=== PATIENT | male | born 1960 | race Caucasian/White ===

== ENCOUNTER 2019-10-22 15:05 | Emergency (ER) | payer OTHER ==
[2019-10-22 15:18] VITALS: TEMP 97.6; BMI 18.4
--- NOTE | 2019-10-22 15:25 | PDOC ---
History of Present Illness - General Chief Complaint: Shortness of Breath Stated Complaint: SHORTNESS OF BRETH Time Seen by Provider: 10/22/19 15:08 History Source: Patient Exam Limitations: No Limitations - History of Present Illness Initial Comments: 10/22/19 17:16 59yM w PMhx HIV (on antivirals) and substance drug abuse (currently meth) presenting w SOB. 3pm, experienced sudden diaphoresis, blurry vision, SOB when taxi stopped suddenly on the way to visit his mother. Currently has SOB, lightheadedness worse w standing, not associated w exertion. Denies recent alcohol/smoking/recent drug use. Antiviral med compliant, last viral levels undetectable. Was seen 2mo ago for SOB admitted for PNA and obstructed bronchiole from pea. Denies fever, nausea/vomiting, cough, chest pain, urinary symptoms. Dr Lyndon raya Past History - Past Medical History Allergies/Adverse Reactions: Allergies Allergy/AdvReac Type Severity Reaction Status Date / Time No Known Allergies Allergy Verified 10/22/19 15:23 Home Medications: Ambulatory Orders Acyclovir [Zovirax -] 400 mg PO DAILY 10/22/19 Albuterol Sulfate Inhaler - [Ventolin Hfa Inhaler -] 1 - 2 inh PO QID PRN Amlodipine Besylate [Norvasc -] 5 mg PO DAILY 10/22/19 Aspirin [Aspirin EC] 81 mg PO DAILY 10/22/19 Cholecalciferol (Vitamin D3) [Vitamin D3] 50 mcg PO DAILY 10/22/19 Cyproheptadine [Periactin -] 4 mg PO Q12H 10/22/19 Dronabinol 10/22/19 Enalapril Maleate [Vasotec] 10 mg PO DAILY 10/22/19 Finasteride 5 mg PO DAILY 10/22/19 Fluticasone Prop 0.05% Nasal [Flonase -] 1 - 2 spray NS BID 10/22/19 Mupirocin Ointment [Bactroban] 1 applic TP BID 10/22/19 Mv-Mins/Folic Acid/Guarana/Caf [One Daily Tablet] 1 each PO DAILY 10/22/19 Ranitidine HCl 10/22/19 Asthma: Yes COPD: No Disorders: Yes HTN: Yes Other medical history: HIV,PNA - Psycho Social/Smoking Cessation Hx Smoking History: Current every day smoker Number of Cigarettes Smoked Daily: 1 Information on smoking cessation initiated: Yes Hx Alcohol Use: No Drug/Substance Use Hx: Yes Review of Systems - Review of Systems Constitutional: No: Chills, Fever HEENTM: Yes: Blurred Vision. No: Eye Pain, Nose Pain, Hearing Loss, Mouth Pain Respiratory: Yes: Shortness of Breath. No: Cough, Wheezing Cardiac (ROS): Yes: Lightheadedness. No: Chest Pain ABD/GI: No: Abdominal Distended, Constipated, Diarrhea, Nausea, Vomiting : No: Burning, Dysuria, Flank Pain Musculoskeletal: No: Back Pain, Joint Pain Integumentary: No: Bruising, Erythema Neurological: No: Headache, Seizure, Tingling Psychiatric: No: Anxiety, Depression Endocrine: No: Excessive Sweating, Flushing, Intolerance to Cold, Intolerance to Heat Hematologic/Lymphatic: No: Anemia, Blood Clots *Physical Exam - Vital Signs Last Vital Signs Temp Pulse Resp BP Pulse Ox 97.6 F 104 H 19 156/71 100 10/22/19 15:06 10/22/19 15:06 10/22/19 15:06 10/22/19 15:06 10/22/19 15:06 - Physical Exam General Appearance: Yes: Nourished, Appropriately Dressed. No: Apparent Distress HEENT: positive: EOMI, ROHINI, Normal Voice, Hearing Grossly Normal. negative: Scleral Icterus (R), Scleral Icterus (L), Nasal Congestion, Rhinorrhea Respiratory/Chest: positive: Lungs Clear, Normal Breath Sounds. negative: Chest Tender, Respiratory Distress, Crackles, Rales, Rhonchi, Stridor, Wheezing Cardiovascular: positive: Regular Rhythm, S1, S2, Tachycardia. negative: Edema , Murmur Extremity: positive: Delayed Capillary Refill Integumentary: positive: Normal Color, Dry Neurologic: positive: director of public works II-XII NML intact, Fully Oriented, Alert, Normal Mood/ Affect, Normal Response, Motor Strength 5/5, Respond to painful stimul, Responsive. negative: Numbness, Sensory Deficit, Confused, Disoriented ED Treatment Course - LABORATORY CBC & Chemistry Diagram: 10/22/19 15:55 10/22/19 15:55 Medical Decision Making - Medical Decision Making 10/22/19 17:20 CXR shows enlarged lung servin, chronic infiltrates EKG shows TWI V1, HR 80, QTc 426 Cr 1.6 --- 59yM w PMHx HIV (on antivirals) and substance drug abuse (currently meth) presenting w SOB, presyncope SOB d/t anxiety. Likely had vasovagal syncope (vision change, diaphoresis). Also has BIBIANA (Cr 1.6) without UTI. Low concern for ACS (neg trop, normal EKG) vs anemia (normal Hgb). Contacted Dr Lyndon raya, waiting for call back DC home w PCP f/u Discharge - Discharge Information Problems reviewed: Yes Clinical Impression/Diagnosis: Anxiety, SOB (shortness of breath), Pre-syncope, BIBIANA (acute kidney injury) Condition: Good Disposition: HOME - Admission No - Follow up/Referral - Patient Discharge Instructions Patient Printed Discharge Instructions: DI for Syncope in Adults (Fainting), DI for Shortness of Breath Additional Instructions: You were seen for shortness of breath. Your workup did not show anything concerning. You were given fluids Please see your primary care doctor regarding this visit. Drink lots of water Come back to the ED if you have chest pain, trouble breathing, or lose consciousness - Post Discharge Activity
[2019-10-22 16:16] LABS: BASO % 0.8 % (0-2.0); EOS % 1.8 % (0-4.5); HEMATOCRIT 46.2 % (35.4-49); HEMOGLOBIN 15.4 GM/dl (11.7-16.9); LYMPH % 19.8 % (8-40); MCH 32.2 pg (25.7-33.7); MCHC 33.3 g/dl (32.0-35.9); MEAN CELL VOLUME 96.7 fl (80-96); MEAN PLT VOLUME 8.4 fl (7.5-11.1); MONO % 5.4 % (3.8-10.2); NEUT % 72.2 % (42.8-82.8); PLATELET COUNT 228 K/MM3 (134-434); RBC 4.78 M/mm3 (4.00-5.60); RDW 13.1 % (11.9-15.9); WHITE BLOOD COUNT 5.9 K/mm3 (4.0-10.8)
[2019-10-22 16:23] LABS: ALBUMIN 4.1 g/dl (3.4-5.0); BILIRUBIN,TOTAL 0.5 mg/dl (0.2-1); CALCIUM 9.6 mg/dl (8.5-10); CREATININE 1.6 mg/dl (0.55-1.3); POTASSIUM 4.6 mmol/L (3.5-5.1); TOT PROT 7.1 g/dl (6.4-8.2)
[2019-10-22] MEDS ORDERED: SODIUM CHLORIDE 0.9% 500 ML INFUS.BAG IV ONE ×2 (16:24→17:33)
--- NOTE | 2019-10-22 16:30 | PDOC ---
Attending Attestation - Resident Resident Name: Nima Arellano - ED Attending Attestation I have performed the following: I have examined & evaluated the patient, The case was reviewed & discussed with the resident, I agree w/resident's findings & plan, Exceptions are as noted - HPI HPI: 10/22/19 16:25 59 yo h/o HIV on antivirals, current viral load undetectabel. with recent admission to [facility] for pneumonia, and bronchoscopy here with episode of feeling lighteaded. pt states he was [place] taxi on way to see his mother, as his father recently is . came to sudden stop, he smoked cigarette and suddenly became dizzy, lightehaded as if he was about to faint. states his lighteadedness gets worse wtih standing or going from lying to sitting up. no f/ c no cough. has had chronic sob for last few months. he follows with pulmonary at [facility] in [place]. states he recenlty had workup wtih ct contrast negative for PE also has had recent cardiac workup of stress that he was unabel to finish due to dizziness, but was reportedly unremarkable. no cp no leg swelling. does use meth regularily and h/o heroin abuse. has been eating drinking ok. no other complaints. - Physicial Exam PE: 10/22/19 16:30 awake alert pt is thin emaciated. lungs are with distant bs, no wheezes no crackes. heart rrr no mrg abd soft nt nd ext wwp. no edema. nocalf tenderness. awake alert oriented. - Medical Decision Making 10/22/19 16:30 59 yo male h/o HIV viral uload undetectable and recent pneumonia here with lighteaded epsiode and near syncope, chronic sob. plan r/o infection, anemia, cardiac event. ekg labs trop ivf hydration. if all unremarkable. pt likley to be dc home. recomemnd refrain from drug use and smoking and fu wtih pulmonary disease. 10/22/19 17:42 pt with yadiel, hydrated with normal saline. otherwise labs unremarkable. ekg unremarakble. left message for pt process description writer. negative trop. at this point will dc pt with close followup with his process description writer and encouraged to stop using drugs, hydrate, wtih water. return for ay problems or concerns. Heart Score/ECG Review #1 General ECG Interpretation: Sinus Rhythm, Normal Rate (80), Normal Intervals, No acute ischemic changes
[2019-10-22] MEDS ORDERED: SODIUM CHLORIDE 0.9% 1000 ML INFUS.BAG IV ONE (16:31)
[2019-10-22 18:42] VITALS: BP 131/91; PULSE 98
--- NOTE | 2019-10-23 13:35 | EKG ---
Test Reason : Blood Pressure : / mmHG Vent. Rate : 080 BPM Atrial Rate : 080 BPM P-R Int : 154 ms QRS Dur : 086 ms QT Int : 370 ms P-R-T Axes : 081 080 073 degrees QTc Int : 426 ms NORMAL SINUS RHYTHM POSSIBLE LEFT ATRIAL ENLARGEMENT BORDERLINE ECG NO PREVIOUS ECGS AVAILABLE Confirmed by MD BIJAL, CARIE ([id number]) on 10/23/2019 1:35:01 PM Referred By: DR UGALDE Confirmed By:CARIE APPIAH MD
== END 2019-10-22 18:43 | disposition home or self-care (01) ==
LOC: FER 15:05
PROC: 3E0337Z Introduction of Electrolytic and Water Balance Substance into Peripheral Vein, Percutaneous Approach (ICD-10-PCS; principal; 2019-10-22)
DX: R55 Syncope and collapse (principal); N17.9 Acute kidney failure, unspecified; F41.9 Anxiety disorder, unspecified; R06.02 Shortness of breath; Z21 Asymptomatic human immunodeficiency virus [HIV] infection status; I10 Essential (primary) hypertension; J45.909 Unspecified asthma, uncomplicated; F17.210 Nicotine dependence, cigarettes, uncomplicated; F19.10 Other psychoactive substance abuse, uncomplicated
CPT/HCPCS: 36415; 71046-TC-FY; 80053; 81003; 84484; 85025; 87086; 93005; 99284-25; J7030